=== PATIENT | male | born 1990 | race Caucasian/White ===

== ENCOUNTER 2024-01-18 21:26 | Emergency (ER) | payer OTHER ==
[2024-01-18 21:33] VITALS: BP 135/86; PULSE 93; RESP 18; TEMP 97.7; BMI 32.8
[2024-01-18] MEDS ORDERED: FAMOTIDINE 10 MG/ML VIAL IVPB ONE (23:31)
[2024-01-18] MEDS ORDERED: LIDOCAINE 5% TOPICAL PATCH ONE (23:31)
[2024-01-18 23:34] LABS: BASO % 0.5 % (0-2.0); EOS % 0.9 % (0-4.5); HEMATOCRIT 43.9 % (35.4-49); MCH 32.8 pg (25.7-33.7); MCHC 34.2 g/dl (32.0-35.9); MEAN CELL VOLUME 95.9 fl (80-96); MEAN PLT VOLUME 8.1 fl (7.5-11.1); MONO % 9.5 % (3.8-10.2); NEUT % 65.1 % (42.8-82.8); PLATELET COUNT 270 10^3/uL (134-434); RBC 4.58 M/mm3 (4.00-5.60); RDW 14.2 % (11.9-15.9); WHITE BLOOD COUNT 6.6 K/mm3 (4.0-10.0)
[2024-01-18] MEDS: LIDOCAINE 5% TOPICAL PATCH TP ONE (23:42)
[2024-01-18] MEDS: FAMOTIDINE 20 MG/50 ML IVPB 20 MG/50 ML MG IVPB ONE (23:42)
[2024-01-18] MEDS: LACTATED RINGERS SOLUTION 1000 ML INFUS.BAG IV ONE (23:42)
[2024-01-18 23:50] LABS: POTASSIUM 4.1 mmol/L (3.5-5.1)
[2024-01-18 23:52] LABS: BLOOD UREA NITROGEN 10.2 mg/dL (7-18); CALCIUM 9.3 mg/dL (8.5-10.1)
[2024-01-18 23:53] LABS: ALBUMIN 4.1 g/dl (3.4-5.0)
[2024-01-18 23:56] LABS: CREATININE 0.9 mg/dL (0.55-1.3)
[2024-01-18 23:57] LABS: TOT PROT 7.5 g/dl (6.4-8.2)
== END 2024-01-19 00:49 | disposition home or self-care (01) ==
LOC: JERFT 21:26 → JER 21:26
PROC: 3E033GC Introduction of Other Therapeutic Substance into Peripheral Vein, Percutaneous Approach (ICD-10-PCS; principal; 2024-01-18)
DX: R53.81 Other malaise (principal); M54.6 Pain in thoracic spine; Z20.822 Contact with and (suspected) exposure to COVID-19
CPT/HCPCS: 0241U-QW; 36415; 71046-TC-FY; 80053; 83735; 84484; 85025; 93005; 93010; 99285-25

== ENCOUNTER 2024-03-10 13:49 | Emergency (ER) | payer OTHER ==
[2024-03-10 14:04] VITALS: BP 145/87; PULSE 94; RESP 18; TEMP 97.8; BMI 32.1
[2024-03-10 15:34] LABS: BASO % 0.4 % (0-2.0); EOS % 0.6 % (0-4.5); HEMATOCRIT 46.3 % (35.4-49); HEMOGLOBIN 16.2 GM/dL (11.7-16.9); LYMPH % 15.8 % (8-40); MCH 32.9 pg (25.7-33.7); MCHC 34.9 g/dl (32.0-35.9); MEAN CELL VOLUME 94.3 fl (80-96); MEAN PLT VOLUME 7.9 fl (7.5-11.1); MONO % 7.4 % (3.8-10.2); NEUT % 75.8 % (42.8-82.8); PLATELET COUNT 257 10^3/uL (134-434); RBC 4.91 M/mm3 (4.00-5.60); RDW 13.1 % (11.9-15.9); WHITE BLOOD COUNT 6.7 K/mm3 (4.0-10.0)
[2024-03-10 16:02] LABS: POTASSIUM 4.1 mmol/L (3.5-5.1)
[2024-03-10 16:04] LABS: ALBUMIN 4.5 g/dl (3.4-5.0); BLOOD UREA NITROGEN 10.8 mg/dL (7-18); CALCIUM 9.8 mg/dL (8.5-10.1)
[2024-03-10 16:12] LABS: BILIRUBIN,TOTAL 1.2 mg/dL (0.2-1); CREATININE 0.9 mg/dL (0.55-1.3); TOT PROT 7.8 g/dl (6.4-8.2)
== END 2024-03-10 17:44 | disposition home or self-care (01) ==
LOC: JER 13:49
DX: R07.9 Chest pain, unspecified (principal)
CPT/HCPCS: 36415; 71045-TC-FY; 80053; 83690; 84484; 85025; 93005; 93010; 99285-25